=== PATIENT | male | born 1955 | race Caucasian/White ===

== ENCOUNTER 2019-05-16 17:08 | Observation (INO) ==
--- NOTE | 2019-05-16 17:47 | Emergency Department Note ---
Disposition Clinical Impression: Dizziness, Difficulty breathing Lung cancer Qualifiers: Laterality: unspecified laterality Lung location: unspecified part of lung Qualified Code(s): C34.90 - Malignant neoplasm of unspecified part of unspecifi ed bronchus or lung Disposition: Still a Patient Condition: Serious Referrals: Lubna Alonso CNP [Primary Care Provider] - Forms: ED Satisfaction Letter Time of Disposition: 19:24 Dizziness HPI - General Chief Complaint: ED Dizziness Stated Complaint: dizzy/back pain Time Seen by Provider: 05/16/19 17:13 Source: patient Mode of arrival: ambulatory Limitations: no limitations Nursing Notes Reviewed: Yes Vital Signs Reviewed: Yes - History of Present Illness HPI Narrative: 64-year-old male past medical history of lung cancer treated with radiation therapy last dose [address] 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 Presenting to the ED for one day of generalized malaise, worsening shortness of breath, back pain, lightheadedness and dizziness. Patient states that he has a considerable family history of cancer and that for of his siblings have all most recently being 2 months ago from lung cancer which spread to her spine. Patient is bedside said that they are concerned that this may be happening to the patient. Patient states he also has a lesion in his brain which they have been monitoring for concern of metastatic lung cancer to the brain tissue. Upon my evaluation patient sitting upright in hospital that he has an audible wheeze noted from across the room, he appears to be in mild respiratory distress , he is noted to be uncomfortable stating he has back pain which is 7 out of 10 on the pain scale. Patient has no lateralizing signs he is noncyanotic nondiaphoretic. Pt Subjective Complaint: dizziness, lightheadedness Onset (ago): day(s) Associated symptoms: Reports: chills, shortness of breath, weakness - Related Data Home Medications Medication Instructions Recorded Confirmed Albuterol Neb [Proventil Neb] 2.5 mg IH TID 06/06/18 04/17/19 Albuterol Sulfate [Ventolin Hfa] 2 puff IH Q4H PRN 06/06/18 04/17/19 Budesonide/Formoterol 160/4.5 2 puff IH BIDR 06/06/18 04/17/19 [Symbicort 160/4.5] Ergocalciferol (VITAMIN D2) 50,000 unit PO QWEEK 06/06/18 04/17/19 [Vitamin D2] Losartan/Hydrochlorothiazide 1 each PO DAILY 06/06/18 04/17/19 [Hyzaar 100-25 Tablet] Simvastatin [Zocor] 40 mg PO HS 06/06/18 04/17/19 cloNIDine HCl [Clonidine HCl] 0.2 mg PO TID 06/06/18 04/17/19 Allergies Allergy/AdvReac Type Severity Reaction Status Date / Time No Known Allergies Allergy Verified 04/17/19 11:43 Review of Systems: *See History of Present Illness for more detail Constitutional: Admits: Chills. Denies: fever Cardiovascular: Denies: chest pain Respiratory: Admits: dyspnea, cough, denies: hemoptysis Gastrointestinal: Denies: abdominal pain, nausea, vomiting, diarrhea, constipation, hematemesis, melena, hematochezia Genitourinary: Denies: hematuria Musculoskeletal: Admits to back pain: Denies: neck pain Neurological: Admits to headache, weakness, lightheadedness dizziness noticed paresthesias. Denies: difficulty with ambulation. Endocrine: Admits: fatigue All systems ED: reviewed and negative except as stated. Review of Systems: As Per HPI Past Medical History - Past Medical History Medical history: Reports: COPD, coronary artery disease, hyperlipidemia, hyp ertension Surgical history: Reports: cancer surgery, carotid endarterectomy Psychiatric history: Reports: no psych history - Social History Smoking Status: Current every day smoker Smokeless Tobacco Status: No Alcohol use: Reports: none Drug use: Reports: none Physical Exam Constitutional: No acute distress, [id number], engaged to conversation, speech is fluid, answers questions appropriately Neuro: GCS 15, no overt focal neurological deficits Head: Atraumatic, normocephalic Eyes: Pupils equal, round and reactive to light, no scleral icterus, no conjunctival injection Neck: Trachea midline without deviation. Anterior neck is supple without swelling. *Chest: Symmetric chest wall rise *Heart: Cardiac rhythm and rate are regular with S1 and S2 , no S3 or S4 appreciated, no murmurs, gallops, rubs, or clicks. *Lungs: Patient has diffuse rhonchi and inspiratory and expiratory wheezing to b ilateral auscultations. There is accessory muscle use or prolonged expiratory phase. Patient is in mild respiratory distress. Abdomen: Abdomen is flat, soft to palpation, normal bowel sounds. No abdominal bruit auscultated. Non-distended, non-rigid, no organomegaly, no ascites appreciated. No pulsatile mass, no tenderness or guarding to palpation in all four quadrants, no rebound Extremities: Normal capillary refill without evidence of pedal edema, joint swelling or erythema. Pulses/motor intact in all 4 extremities. Psychiatric exam: Patient displays a normal affect and mood for the environment. No overt signs of hallucination. Integumentary: warm, dry, intact, normal color. No rash, cyanosis, diaphoresis, erythema, or pallor Course Course Narrative: CT head, x-ray chest, lumbar spine, basic labs, coags, urinalysis, d-dimer. Steroids, DuoNeb nebs and fentanyl for management of patient's symptoms. Vital Signs Temperature 99.4 F 05/16/19 17:09 Pulse Rate 105 05/16/19 17:09 Respiratory Rate 20 05/16/19 17:09 Blood Pressure 148/90 05/16/19 17:09 O2 Sat by Pulse Oximetry 92 05/16/19 17:09 Temperature 99.4 F 05/16/19 17:09 Pulse Rate 93 05/16/19 19:05 Respiratory Rate 21 05/16/19 19:05 Blood Pressure 151/97 05/16/19 19:05 O2 Sat by Pulse Oximetry 97 05/16/19 19:05 Oxygen Delivery Oxygen Delivery Nasal Cannula Dizziness - MDM Narrative Medical decision making narrative: Patient workup thus far yields a positive d-dimer we will put in CTA of the chest as well as CT abdomen and pelvis due to concern for metastatic disease given the patient's symptoms. This patient will be signed out at the end of my shift to Dr. Tejas Downey and Dr. Marco Macario. Please see documentation by these physicians for further evaluation, management and final disposition. The patient's hemodynamics were stable time of transfer of care. - Lab Data Lab results reviewed: Yes I reviewed the patient's lab results. Result diagrams: 05/16/19 18:11 05/16/19 18:11 Lab Results 05/16/19 05/16/19 05/16/19 Range/Units 18:11 18:11 18:11 WBC 14.0 H (4.3-11.1) K/mcL RBC 5.02 (4.19-5.50) M/mcL Hgb 15.3 (12.9-16.9) g/dL Hct 46.8 (37.5-50.1) % MCV 93.2 (83.0-100.0) fL MCH 30.5 (28.0-33.3) pg MCHC 32.7 (31.6-35.5) g/dL RDW 15.4 H (11.5-14.5) % Plt Count 171 (140-400) K/mcL MPV 11.7 (9.4-12.4) fL Immature Gran % 0.3 (0-4) % Seg Neutrophils % 80.5 % Lymphocytes % 8.0 % Monocytes % 9.4 % Eosinophils % 1.4 % Basophils % 0.4 % Neutrophils # 11.3 H (1.6-8.9) K/mcL Lymphocytes # 1.1 (0.6-4.6) K/mcL Monocytes # 1.3 (0.0-1.3) K/mcL Eosinophils # 0.2 (0.0-0.6) K/mcL Basophils # 0.1 (0.0-0.2) K/mcL PT 12.9 H (9.4-12.1) Seconds INR 1.1 D-Dimer 869 H (0-500) ng/mLFEU Sodium 134 L (136-145) mEq/L Potassium 4.1 (3.5-5.1) mEq/L Chloride 101 (98-107) mEq/L Carbon Dioxide 24 (23-29) mEq/L BUN 14 (8-23) mg/dL Creatinine 0.79 (0.70-1.30) mg/dL Est GFR ( Amer) > 60 (> 60) Est GFR (Non-Af Amer) > 60 (> 60) BUN/Creatinine Ratio 18 (6-26) Glucose 100 (70-105) mg/dL Calculated Osmolality 279 L (280-300) Lactic Acid (0.5-2.2) mmol/L Calcium 9.6 (8.6-10.3) mg/dL Total Bilirubin 0.5 (0.3-1.0) mg/dL AST 10 L (13-39) Units/L ALT 9 (7-52) Units/L Alkaline Phosphatase 68 (34-104) Units/L Troponin I < 0.03 (< 0.04) ng/mL Serum Total Protein 7.4 (6.4-8.9) g/dL Albumin 4.1 (3.5-5.7) g/dL Globulin 3.3 (2.4-3.5) g/dL Albumin/Globulin Ratio 1.2 (1.1-2.2) 05/16/19 Range/Units 18:11 WBC (4.3-11.1) K/mcL RBC (4.19-5.50) M/mcL Hgb (12.9-16.9) g/dL Hct (37.5-50.1) % MCV (83.0-100.0) fL MCH (28.0-33.3) pg MCHC (31.6-35.5) g/dL RDW (11.5-14.5) % Plt Count (140-400) K/mcL MPV (9.4-12.4) fL Immature Gran % (0-4) % Seg Neutrophils % % Lymphocytes % % Monocytes % % Eosinophils % % Basophils % % Neutrophils # (1.6-8.9) K/mcL Lymphocytes # (0.6-4.6) K/mcL Monocytes # (0.0-1.3) K/mcL Eosinophils # (0.0-0.6) K/mcL Basophils # (0.0-0.2) K/mcL PT (9.4-12.1) Seconds INR D-Dimer (0-500) ng/mLFEU Sodium (136-145) mEq/L Potassium (3.5-5.1) mEq/L Chloride (98-107) mEq/L Carbon Dioxide (23-29) mEq/L BUN (8-23) mg/dL Creatinine (0.70-1.30) mg/dL Est GFR ( Amer) (> 60) Est GFR (Non-Af Amer) (> 60) BUN/Creatinine Ratio (6-26) Glucose (70-105) mg/dL Calculated Osmolality (280-300) Lactic Acid 1.1 (0.5-2.2) mmol/L Calcium (8.6-10.3) mg/dL Total Bilirubin (0.3-1.0) mg/dL AST (13-39) Units/L ALT (7-52) Units/L Alkaline Phosphatase (34-104) Units/L Troponin I (< 0.04) ng/mL Serum Total Protein (6.4-8.9) g/dL Albumin (3.5-5.7) g/dL Globulin (2.4-3.5) g/dL Albumin/Globulin Ratio (1.1-2.2) - Radiology Data Radiology results reviewed: Yes I reviewed the patient's radiology results. Head CT 05/16/19 17:45 IMPRESSION: No acute intracranial abnormality. D/ / Dejuan Adler MD / Dejuan Adler MD Interpreting Provider: Dejuan Adler MD - EKG Data EKG attestation: Yes I reviewed and interpreted this EKG. EKG results narrative: Patient EKG shows sinus rhythm with a heart of 91 bpm, MO interval of 165 ms, QRS duration 10 ms, QT/QT interval 346/4-6 ms respectively. There are no significant ST segment elevations, depressions, pathologic Q waves, abnormal T- wave inversions are noted in lead aVL however isolated to this lead, there are no signs of acute ischemic change. This EKG is generally consistent with prior EKG that was performed on 03/15/2017. Attestation Statement - Attestation Attestation: I, Willy Nelson, examined this patient and my medical decision-making was reviewed with the WET MILLING WHEEL OPERATOR/PA/Advanced Practice Nurse/Resident Physician. I agree with the documented findings, disposition and treatment plan as described except to the extent set forth below. 64-year-old male presents emergency Department with concerns of multiple complaints. Patient states that he has midline back pain that has been present over the past 24-48 hours. Patient also has a history of dizziness with standing, shortness of breath and palpitations. He has a heart rate of 105 in the emergency department. He is unsure if he has had a fever however he has not taken it at home. It is elevated in the emergency department but not quite a fever. Patient states his cough is productive of white sputum. His lungs have wheezing the bilateral posterior lung dumont. He has been using Ventolin and Symbicort at home for his COPD. He states that this feels different than his previous COPD exacerbation. Abdomen is nontender to palpation. Laboratory evaluation and imaging is pending at this time. Patient care will be signed out to Dr. Downey pending reevaluation, imaging, laboratory evaluation, disposition.
[2019-05-16] MEDS ORDERED: 0.9 % Sodium Chloride 1,000 ML IVC ONE (18:25)
[2019-05-16 18:30] LABS: Basophils # 0.1 K/mcL (0.0-0.2); Basophils % 0.4 %; Eosinophils # 0.2 K/mcL (0.0-0.6); Eosinophils % 1.4 %; Hematocrit 46.8 % (37.5-50.1); Hemoglobin 15.3 g/dL (12.9-16.9); Immature Granulocytes % 0.3 % (0-4); Lymphocytes # 1.1 K/mcL (0.6-4.6); Mean Corpuscular HGB Conc 32.7 g/dL (31.6-35.5); Mean Corpuscular Hemoglobin 30.5 pg (28.0-33.3); Mean Corpuscular Volume 93.2 fL (83.0-100.0); Mean Platelet Volume 11.7 fL (9.4-12.4); Monocytes # 1.3 K/mcL (0.0-1.3); Monocytes % 9.4 %; Neutrophils # 11.3 K/mcL (1.6-8.9); Platelet Count 171 K/mcL (140-400); Red Blood Count 5.02 M/mcL (4.19-5.50); Red Cell Distribution Width 15.4 % (11.5-14.5); Segmented Neutrophils % 80.5 %
[2019-05-16] MEDS ORDERED: Ipratropium/Albuterol Neb 3 ML IH ONE ×2 (18:33→19:14)
[2019-05-16 18:37] LABS: INR 1.1; Prothrombin Time 12.9 Seconds (9.4-12.1)
[2019-05-16 18:51] LABS: Alanine Aminotransferase 9 Units/L (7-52); Albumin 4.1 g/dL (3.5-5.7); Albumin/Globulin Ratio 1.2 (1.1-2.2); Alkaline Phosphatase 68 Units/L (34-104); Aspartate Amino Transferase 10 Units/L (13-39); BUN/Creatinine Ratio 18 (6-26); Bilirubin,Total 0.5 mg/dL (0.3-1.0); Blood Urea Nitrogen 14 mg/dL (8-23); Calcium 9.6 mg/dL (8.6-10.3); Carbon Dioxide 24 mEq/L (23-29); Chloride 101 mEq/L (98-107); Globulin 3.3 g/dL (2.4-3.5); Glucose 100 mg/dL (70-105); Osmolality,Calculated 279 (280-300); Potassium 4.1 mEq/L (3.5-5.1); Sodium 134 mEq/L (136-145); Total Protein 7.4 g/dL (6.4-8.9); Troponin I < 0.03 ng/mL (< 0.04); eGFR For African Americans > 60 (> 60); eGFR For Non-African Americans > 60 (> 60)
[2019-05-16] MEDS ORDERED: Isovue-370 500 ML BOTTLE IVP ONE ×2 (18:56→19:08)
[2019-05-16] MEDS ORDERED: *HR* FentaNYL (PF) 100 MCG/2 ML VIAL IVP ONE (19:15)
[2019-05-16] MEDS ORDERED: predniSONE 20 MG TABLET PO ONE (19:18)
--- NOTE | 2019-05-16 19:21 | Emergency Department Note ---
Disposition Clinical Impression: Dizziness, Difficulty breathing Lung cancer Qualifiers: Laterality: unspecified laterality Lung location: unspecified part of lung Qualified Code(s): C34.90 - Malignant neoplasm of unspecified part of unspecifi ed bronchus or lung Sepsis Qualifiers: Sepsis type: sepsis due to unspecified organism Qualified Code(s): A41.9 - Sepsis, unspecified organism Pneumonia Qualifiers: Pneumonia type: due to unspecified organism Laterality: unspecified laterality Lung location: unspecified part of lung Qualified Code(s): J18.9 - Pneumonia, unspecified organism Disposition: Admitted As Inpatient Condition: Fair Referrals: Lubna Alonso CNP [Primary Care Provider] - Forms: ED Satisfaction Letter Time of Disposition: 20:19 General Adult HPI - General Chief complaint: ED Dizziness Stated complaint: dizzy/back pain Time Seen by Provider: 05/16/19 17:13 Source: patient Mode of arrival: ambulatory Limitations: no limitations - History of Present Illness Pain Scale: 5 - Related Data Home Medications Medication Instructions Recorded Confirmed Albuterol Neb [Proventil Neb] 2.5 mg IH TID 06/06/18 04/17/19 Albuterol Sulfate [Ventolin Hfa] 2 puff IH Q4H PRN 06/06/18 04/17/19 Budesonide/Formoterol 160/4.5 2 puff IH BIDR 06/06/18 04/17/19 [Symbicort 160/4.5] Ergocalciferol (VITAMIN D2) 50,000 unit PO QWEEK 06/06/18 04/17/19 [Vitamin D2] Losartan/Hydrochlorothiazide 1 each PO DAILY 06/06/18 04/17/19 [Hyzaar 100-25 Tablet] Simvastatin [Zocor] 40 mg PO HS 06/06/18 04/17/19 cloNIDine HCl [Clonidine HCl] 0.2 mg PO TID 06/06/18 04/17/19 Allergies Allergy/AdvReac Type Severity Reaction Status Date / Time No Known Allergies Allergy Verified 04/17/19 11:43 Past Medical History - Past Medical History Medical history: Reports: COPD, coronary artery disease, hyperlipidemia, hypertension Surgical history: Reports: cancer surgery, carotid endarterectomy Psychiatric history: Reports: no psych history - Social History Smoking Status: Current every day smoker Smokeless Tobacco Status: No Alcohol use: Reports: none Drug use: Reports: none Physical Exam - General Limitations: no limitations Course Vital Signs Temperature 99.4 F 05/16/19 17:09 Pulse Rate 105 05/16/19 17:09 Respiratory Rate 20 05/16/19 17:09 Blood Pressure 148/90 05/16/19 17:09 O2 Sat by Pulse Oximetry 92 05/16/19 17:09 Temperature 99.4 F 05/16/19 17:09 Pulse Rate 93 05/16/19 19:05 Respiratory Rate 17 05/16/19 19:53 Blood Pressure 151/97 05/16/19 19:05 O2 Sat by Pulse Oximetry 96 05/16/19 19:53 Oxygen Delivery Oxygen Delivery Nasal Cannula Medical Decision Making - MDM Narrative Medical decision making narrative: Patient was signed out by the day team of Dr. Nelson and Dr. Best due to shift change. Please see their documentation for history of presenting illness, physical exam and initial medical decision making. At the time of signout the CTA of the chest, abdomen and pelvis were pending. We will review the laboratory testing that was a ready obtained as well as previously obtain imaging. Disposition will be determined once the CTAs have returned. CT of the chest shows evidence of pneumonia and reactive lymphadenopathy. No evidence of pulmonary emboli even though there was an elevated d-dimer. The d-dimer elevation is likely secondary to the patient's history of cancer. The CT of the abdomen and pelvis showed a 3.5 cm aneurysm in the abdomen but no other acute findings. Patient be started on broad-spectrum antibiotics and will be admitted to the hospital for further evaluation and management of his pneumonia Patient did meet sepsis criteria. Has been started on broad-spectrum antibiotics. At this time I do not feel that the patient has signs of septic shock and does not need a full 30/kg bolus. I called spoke the admitting hospitalist Dr. Anderson and he is except the patient to their service. Patient be admitted to the hospital at this time for further evaluation and management - Medical Records Medical records reviewed: Yes I reviewed the patient's medical records. - Lab Data Lab results reviewed: Yes I reviewed the patient's lab results. Result diagrams: 05/16/19 18:11 05/16/19 18:11 Lab Results 05/16/19 05/16/19 05/16/19 Range/Units 18:11 18:11 18:11 WBC 14.0 H (4.3-11.1) K/mcL RBC 5.02 (4.19-5.50) M/mcL Hgb 15.3 (12.9-16.9) g/dL Hct 46.8 (37.5-50.1) % MCV 93.2 (83.0-100.0) fL MCH 30.5 (28.0-33.3) pg MCHC 32.7 (31.6-35.5) g/dL RDW 15.4 H (11.5-14.5) % Plt Count 171 (140-400) K/mcL MPV 11.7 (9.4-12.4) fL Immature Gran % 0.3 (0-4) % Seg Neutrophils % 80.5 % Lymphocytes % 8.0 % Monocytes % 9.4 % Eosinophils % 1.4 % Basophils % 0.4 % Neutrophils # 11.3 H (1.6-8.9) K/mcL Lymphocytes # 1.1 (0.6-4.6) K/mcL Monocytes # 1.3 (0.0-1.3) K/mcL Eosinophils # 0.2 (0.0-0.6) K/mcL Basophils # 0.1 (0.0-0.2) K/mcL PT 12.9 H (9.4-12.1) Seconds INR 1.1 D-Dimer 869 H (0-500) ng/mLFEU Sodium 134 L (136-145) mEq/L Potassium 4.1 (3.5-5.1) mEq/L Chloride 101 (98-107) mEq/L Carbon Dioxide 24 (23-29) mEq/L BUN 14 (8-23) mg/dL Creatinine 0.79 (0.70-1.30) mg/dL Est GFR ( Amer) > 60 (> 60) Est GFR (Non-Af Amer) > 60 (> 60) BUN/Creatinine Ratio 18 (6-26) Glucose 100 (70-105) mg/dL Calculated Osmolality 279 L (280-300) Lactic Acid (0.5-2.2) mmol/L Calcium 9.6 (8.6-10.3) mg/dL Total Bilirubin 0.5 (0.3-1.0) mg/dL AST 10 L (13-39) Units/L ALT 9 (7-52) Units/L Alkaline Phosphatase 68 (34-104) Units/L Troponin I < 0.03 (< 0.04) ng/mL Serum Total Protein 7.4 (6.4-8.9) g/dL Albumin 4.1 (3.5-5.7) g/dL Globulin 3.3 (2.4-3.5) g/dL Albumin/Globulin Ratio 1.2 (1.1-2.2) Urine Color (Yellow) Urine Clarity (Clear) Urine pH (5.0-8.0) pH Units Ur Specific Conroy (1.010-1.025) Urine Protein (Neg-Trace) mg/dL Urine Glucose (UA) (Normal) mg/dL Urine Ketones (Negative) mg/dL Urine Blood (Negative) Urine Nitrite (Negative) Urine Bilirubin (Negative) Urine Urobilinogen (Normal) mg/dL Ur Leukocyte Esterase (Negative) Urine Microscopic RBC (0-3) per hpf Urine Microscopic WBC (0-3) per hpf Ur Squamous Epith Cells (None-Few) per lpf Urine Bacteria (None-Few) per hpf Hyaline Casts (None-Few) per lpf Ur Culture Indicated? (NO) 05/16/19 05/16/19 Range/Units 18:11 19:38 WBC (4.3-11.1) K/mcL RBC (4.19-5.50) M/mcL Hgb (12.9-16.9) g/dL Hct (37.5-50.1) % MCV (83.0-100.0) fL MCH (28.0-33.3) pg MCHC (31.6-35.5) g/dL RDW (11.5-14.5) % Plt Count (140-400) K/mcL MPV (9.4-12.4) fL Immature Gran % (0-4) % Seg Neutrophils % % Lymphocytes % % Monocytes % % Eosinophils % % Basophils % % Neutrophils # (1.6-8.9) K/mcL Lymphocytes # (0.6-4.6) K/mcL Monocytes # (0.0-1.3) K/mcL Eosinophils # (0.0-0.6) K/mcL Basophils # (0.0-0.2) K/mcL PT (9.4-12.1) Seconds INR D-Dimer (0-500) ng/mLFEU Sodium (136-145) mEq/L Potassium (3.5-5.1) mEq/L Chloride (98-107) mEq/L Carbon Dioxide (23-29) mEq/L BUN (8-23) mg/dL Creatinine (0.70-1.30) mg/dL Est GFR ( Amer) (> 60) Est GFR (Non-Af Amer) (> 60) BUN/Creatinine Ratio (6-26) Glucose (70-105) mg/dL Calculated Osmolality (280-300) Lactic Acid 1.1 (0.5-2.2) mmol/L Calcium (8.6-10.3) mg/dL Total Bilirubin (0.3-1.0) mg/dL AST (13-39) Units/L ALT (7-52) Units/L Alkaline Phosphatase (34-104) Units/L Troponin I (< 0.04) ng/mL Serum Total Protein (6.4-8.9) g/dL Albumin (3.5-5.7) g/dL Globulin (2.4-3.5) g/dL Albumin/Globulin Ratio (1.1-2.2) Urine Color Yellow (Yellow) Urine Clarity Clear (Clear) Urine pH 6.0 (5.0-8.0) pH Units Ur Specific Conroy 1.019 (1.010-1.025) Urine Protein Trace (Neg-Trace) mg/dL Urine Glucose (UA) Normal (Normal) mg/dL Urine Ketones 40 H (Negative) mg/dL Urine Blood Small H (Negative) Urine Nitrite Negative (Negative) Urine Bilirubin Negative (Negative) Urine Urobilinogen Normal (Normal) mg/dL Ur Leukocyte Esterase Negative (Negative) Urine Microscopic RBC 5-15 H (0-3) per hpf Urine Microscopic WBC 0-3 (0-3) per hpf Ur Squamous Epith Cells Few (None-Few) per lpf Urine Bacteria None Seen (None-Few) per hpf Hyaline Casts None Seen (None-Few) per lpf Ur Culture Indicated? NO (NO) - Radiology Data Radiology results reviewed: Yes I reviewed the patient's radiology results. Chest X-Ray 05/16/19 17:42 IMPRESSION: Emphysematous changes with chronic opacity left upper lung field and nonvisualization of a right upper lobe mass seen on chest CT from 1 month earlier. No new pulmonary process is suggested. CT scan would prove helpful for further assessment if clinically warranted. No acute osseous injury of the lumbar spine. D/ / 05/16/2019 19:22:30 Alden Mesa MD / jacqueline Interpreting Provider: Alden Mesa MD Lumbar Spine X-Ray 05/16/19 17:44 IMPRESSION: Emphysematous changes with chronic opacity left upper lung field and nonvisualization of a right upper lobe mass seen on chest CT from 1 month earlier. No new pulmonary process is suggested. CT scan would prove helpful for further assessment if clinically warranted. No acute osseous injury of the lumbar spine. D/ / 05/16/2019 19:22:30 Alden Mesa MD / jacqueline Interpreting Provider: Alden Mesa MD Head CT 05/16/19 17:45 IMPRESSION: No acute intracranial abnormality. D/ / Dejuan Adler MD / Dejuan Adler MD Interpreting Provider: Dejuan Adler MD Chest CTA 05/16/19 18:57 IMPRESSION: No evidence of pulmonary embolism. Interval development of innumerable ground-glass and tree-in-bud nodules scattered throughout both lungs with peribronchial cuffing suggesting an acute atypical pneumonia. Enlarged mediastinal and bilateral hilar lymphadenopathy increased in size compared to prior chest CT. Reactive lymphadenopathy is favored over metastatic disease, however, recommend follow-up to resolution. Irregular spiculated right upper lobe and left upper lobe pulmonary nodules unchanged since prior examination suggesting stable metastatic disease/malignancy. No evidence of definite new pulmonary metastatic disease. D/ / 05/16/2019 20:08:19 Dejuan Adler MD / jacqueline Interpreting Provider: Dejuan Adler MD Abdomen/Pelvis CT 05/16/19 19:08 IMPRESSION: No acute abdominopelvic process. No evidence of metastatic disease. Multilevel degenerative change. 3.5 cm abdominal aortic aneurysm. RECOMMENDATIONS: Recommend follow-up every 2 years. Reference: J Am Sherman Radiol 2013;10:789-794. D/ / 05/16/2019 20:03:06 Nirav Correa / jacqueline Interpreting Provider: Nirav Correa
--- NOTE | 2019-05-16 19:22 | Emergency Department Note ---
Disposition Clinical Impression: Dizziness Disposition: Still a Patient Referrals: Lubna Alonso CNP [Primary Care Provider] - Forms: ED Satisfaction Letter Time of Disposition: 19:21 General Adult HPI - General Chief complaint: ED Dizziness Stated complaint: dizzy/back pain Time Seen by Provider: 05/16/19 17:13 Source: patient Mode of arrival: ambulatory Limitations: no limitations Nursing Notes Reviewed: Yes Vital Signs Reviewed: Yes - History of Present Illness HPI Narrative: Attestation note: Patient was seen with the emergency medicine resident/nurse practitioner/physician dental laboratory assistant/transitional resident/medical student: Dr. TIARRA SIMPSON. This includes well any procedures performed for this significant portion thereof which are to include EKG and bedside ultrasound I have personally performed a face to face evaluation on this patient. I have reviewed and agree with history and physical examination patient management and disposition. Briefly the salient points of the case are as follows: Patient signed out by the departing emergency medicine attending and resident Dr. Nelson and Dr. Trejo. Please see copy note for details of the history and physical examination evaluation management to the point of sign out at 1921. We are follow-up the results of the CT scan screening labs reevaluated patient. Patient is stable. Disposition pending Pain Scale: 5 - Related Data Home Medications Medication Instructions Recorded Confirmed Albuterol Neb [Proventil Neb] 2.5 mg IH TID 06/06/18 04/17/19 Albuterol Sulfate [Ventolin Hfa] 2 puff IH Q4H PRN 06/06/18 04/17/19 Budesonide/Formoterol 160/4.5 2 puff IH BIDR 06/06/18 04/17/19 [Symbicort 160/4.5] Ergocalciferol (VITAMIN D2) 50,000 unit PO QWEEK 06/06/18 04/17/19 [Vitamin D2] Losartan/Hydrochlorothiazide 1 each PO DAILY 06/06/18 04/17/19 [Hyzaar 100-25 Tablet] Simvastatin [Zocor] 40 mg PO HS 06/06/18 04/17/19 cloNIDine HCl [Clonidine HCl] 0.2 mg PO TID 06/06/18 04/17/19 Allergies Allergy/AdvReac Type Severity Reaction Status Date / Time No Known Allergies Allergy Verified 04/17/19 11:43 Past Medical History - Past Medical History Medical history: Reports: COPD, coronary artery disease, hyperlipidemia, hypertension Surgical history: Reports: cancer surgery, carotid endarterectomy Psychiatric history: Reports: no psych history - Social History Smoking Status: Current every day smoker Smokeless Tobacco Status: No Alcohol use: Reports: none Drug use: Reports: none Physical Exam - General Limitations: no limitations Course Vital Signs Temperature 99.4 F 05/16/19 17:09 Pulse Rate 105 05/16/19 17:09 Respiratory Rate 20 05/16/19 17:09 Blood Pressure 148/90 05/16/19 17:09 O2 Sat by Pulse Oximetry 92 05/16/19 17:09 Temperature 99.4 F 05/16/19 17:09 Pulse Rate 93 05/16/19 19:05 Respiratory Rate 21 05/16/19 19:05 Blood Pressure 151/97 05/16/19 19:05 O2 Sat by Pulse Oximetry 97 05/16/19 19:05 Oxygen Delivery Oxygen Delivery Nasal Cannula Medical Decision Making - Lab Data Result diagrams: 05/16/19 18:11 05/16/19 18:11 Lab Results 05/16/19 05/16/19 05/16/19 Range/Units 18:11 18:11 18:11 WBC 14.0 H (4.3-11.1) K/mcL RBC 5.02 (4.19-5.50) M/mcL Hgb 15.3 (12.9-16.9) g/dL Hct 46.8 (37.5-50.1) % MCV 93.2 (83.0-100.0) fL MCH 30.5 (28.0-33.3) pg MCHC 32.7 (31.6-35.5) g/dL RDW 15.4 H (11.5-14.5) % Plt Count 171 (140-400) K/mcL MPV 11.7 (9.4-12.4) fL Immature Gran % 0.3 (0-4) % Seg Neutrophils % 80.5 % Lymphocytes % 8.0 % Monocytes % 9.4 % Eosinophils % 1.4 % Basophils % 0.4 % Neutrophils # 11.3 H (1.6-8.9) K/mcL Lymphocytes # 1.1 (0.6-4.6) K/mcL Monocytes # 1.3 (0.0-1.3) K/mcL Eosinophils # 0.2 (0.0-0.6) K/mcL Basophils # 0.1 (0.0-0.2) K/mcL PT 12.9 H (9.4-12.1) Seconds INR 1.1 D-Dimer 869 H (0-500) ng/mLFEU Sodium 134 L (136-145) mEq/L Potassium 4.1 (3.5-5.1) mEq/L Chloride 101 (98-107) mEq/L Carbon Dioxide 24 (23-29) mEq/L BUN 14 (8-23) mg/dL Creatinine 0.79 (0.70-1.30) mg/dL Est GFR ( Amer) > 60 (> 60) Est GFR (Non-Af Amer) > 60 (> 60) BUN/Creatinine Ratio 18 (6-26) Glucose 100 (70-105) mg/dL Calculated Osmolality 279 L (280-300) Lactic Acid (0.5-2.2) mmol/L Calcium 9.6 (8.6-10.3) mg/dL Total Bilirubin 0.5 (0.3-1.0) mg/dL AST 10 L (13-39) Units/L ALT 9 (7-52) Units/L Alkaline Phosphatase 68 (34-104) Units/L Troponin I < 0.03 (< 0.04) ng/mL Serum Total Protein 7.4 (6.4-8.9) g/dL Albumin 4.1 (3.5-5.7) g/dL Globulin 3.3 (2.4-3.5) g/dL Albumin/Globulin Ratio 1.2 (1.1-2.2) 05/16/19 Range/Units 18:11 WBC (4.3-11.1) K/mcL RBC (4.19-5.50) M/mcL Hgb (12.9-16.9) g/dL Hct (37.5-50.1) % MCV (83.0-100.0) fL MCH (28.0-33.3) pg MCHC (31.6-35.5) g/dL RDW (11.5-14.5) % Plt Count (140-400) K/mcL MPV (9.4-12.4) fL Immature Gran % (0-4) % Seg Neutrophils % % Lymphocytes % % Monocytes % % Eosinophils % % Basophils % % Neutrophils # (1.6-8.9) K/mcL Lymphocytes # (0.6-4.6) K/mcL Monocytes # (0.0-1.3) K/mcL Eosinophils # (0.0-0.6) K/mcL Basophils # (0.0-0.2) K/mcL PT (9.4-12.1) Seconds INR D-Dimer (0-500) ng/mLFEU Sodium (136-145) mEq/L Potassium (3.5-5.1) mEq/L Chloride (98-107) mEq/L Carbon Dioxide (23-29) mEq/L BUN (8-23) mg/dL Creatinine (0.70-1.30) mg/dL Est GFR ( Amer) (> 60) Est GFR (Non-Af Amer) (> 60) BUN/Creatinine Ratio (6-26) Glucose (70-105) mg/dL Calculated Osmolality (280-300) Lactic Acid 1.1 (0.5-2.2) mmol/L Calcium (8.6-10.3) mg/dL Total Bilirubin (0.3-1.0) mg/dL AST (13-39) Units/L ALT (7-52) Units/L Alkaline Phosphatase (34-104) Units/L Troponin I (< 0.04) ng/mL Serum Total Protein (6.4-8.9) g/dL Albumin (3.5-5.7) g/dL Globulin (2.4-3.5) g/dL Albumin/Globulin Ratio (1.1-2.2)
[2019-05-16 19:44] LABS: Bilirubin,Urine Negative (Negative); Blood,Urine Small (Negative); Clarity,Urine Clear (Clear); Color,Urine Yellow (Yellow); Glucose,Urine (UA) Normal (Normal); Ketones,Urine 40 mg/dL (Negative); Leukocyte Esterase,Urine Negative (Negative); Nitrite,Urine Negative (Negative); Protein,Urine Trace mg/dL (Neg-Trace); Specific Gravity,Urine 1.019 (1.010-1.025); Urobilinogen,Urine Normal (Normal)
[2019-05-16 19:46] LABS: Bacteria,Urine None Seen per hpf (None-Few); Hyaline Casts,Urine None Seen per lpf (None-Few); Squamous Epithelial Cell,Urine Few per lpf (None-Few); WBC,Urine 0-3 per hpf (0-3)
[2019-05-16] MEDS ORDERED: levoFLOXacin 750 MG/150 ML 750 MG/150 ML BAG IVPB ONE (20:08)
[2019-05-16] MEDS ORDERED: Piperacillin/Tazobactam 3.375 GM in 0.9 % Sodium Chloride Mini Bag 100 ML IVPB ONE (20:08)
--- NOTE | 2019-05-16 21:04 | Internal Med History&Physical ---
<Moreno King - Last Filed: 05/16/19 22:34> Date of Encounter: 05/16/19 Time of Encounter: 21:20 Internal Medicine - H&P: HPI Chief complaint: SOB Admitted From: Emergency Dept Plans for Post Hospital Care: Home History of present illness: Mr. Fontanez is a 64 year old male with history of COPD, CAD, hypertension, hyperlipidemia, lung cancer who presented to the hospital with 2 day history of weakness, shortness of breath and malaise. He says that yesterday he had a sudden onset feeling of chills, weakness and shortness breath which started approximately 3 PM. He very suddenly felt cold and clammy, and developed weakness and shortness of breath. He said that this got progressively worse throughout the day however he did search feel somewhat better but attempt he went to bed. He said that when he woke up this morning however, he did start to feel significantly worse and started developing cough with some white phlegm production. Over the course of the day he started to feel worse and he felt that he was maybe feverish as well. His shortness of breath also did get worse as well. He finally decided that he needed to come into the hospital because he felt that he may be developing a severe illness. His only other acute complaint was lower back pain at around his belt line which was new, but not associated with any LE weakness or loss of feeling. Significantly, the patient does have history of lung cancer and was most recently treated with radiation approximately 6 months ago. He does use 2 L of home oxygen at night exclusively. In the emergency department, the patient had labs which were remarkable only for a WBC of 14. The patient was afebrile with a temperature of 99.4, he was tachycardic with heart rate of 105, RR 20. The patient did have a CTA of the chest which was negative for pulmonary embolism but did demonstrate innumerable groundglass and tree and bud nodules scattered throughout both lungs and peribronchial cuffing suggesting acute atypical pneumonia. It also redemonstrate irregular spiculated right upper lobe and left lower lobe pulmonary nodules suggestive of stable metastatic disease. CT of the abdomen and pelvis did demonstrate 3.5 severe abdominal aortic aneurysm but was otherwise negative. The patient received Vancomycin and levaquin and was admitted to the hospitalist service for further workup and treatment of atypical pneumonia. Past Med Surg Social Fam HX - Past Medical History Medical history: COPD, coronary artery disease, hyperlipidemia, hypertension Additional medical history: emphysema Psychiatric history: no psych history - Past Surgical History Surgical History: cancer surgery, carotid endarterectomy Additional surgical history: right ankle. heart cath - Social History Smoking Status: Current every day smoker Smokeless Tobacco Status: No Alcohol use: none Drug use: none Internal Medicine - H&P: Meds Albuterol Neb [Proventil Neb] 2.5 mg IH TID 06/06/18 [History] Albuterol Sulfate [Ventolin Hfa] 2 puff IH Q4H PRN 06/06/18 [History] Budesonide/Formoterol 160/4.5 [Symbicort 160/4.5] 2 puff IH BIDR 06/06/18 [History] Ergocalciferol (VITAMIN D2) [Vitamin D2] 50,000 unit PO QWEEK 06/06/18 [History] Losartan/Hydrochlorothiazide [Hyzaar 100-25 Tablet] 1 each PO DAILY 06/06/18 [History] Simvastatin [Zocor] 40 mg PO HS 06/06/18 [History] cloNIDine HCl [Clonidine HCl] 0.2 mg PO TID 06/06/18 [History] Allergy/AdvReac Type Severity Reaction Status Date / Time No Known Allergies Allergy Verified 04/17/19 11:43 All Systems PM: A 10-system review of systems was performed and is negative for pertinent findings except as documented above in the HPI. Review of systems: Constitutional: Denies fevers, weight loss. Admits to feeling of chills and generalized fatigue Head/Neck: Denies TUCKER, neck stiffness EENT: Denies vision changes/blurriness, rhinorrhea, congestion, sore throat CVS: Denies chest pain, palpitations, LEMON, orthopnea, edema, PND Pulm: Admits to shortness of breath, cough, sputum production. GI: Denies abdominal pain, nausea, vomiting, diarrhea, constipation, melena, hematemasis : Denies dysuria, increased frequency, urgency, hematuria Heme: Denies ease of bleeding or bruising MSK: Denies joint pain, limited ROM Skin: Denies rashes, ulcers, color changes Neuro: Denies TUCKER, focal deficits, ataxia. Admits to "strange feeling" in his legs when he stands up initially that goes away instantly. - Constitutional Vitals: Temp Pulse Resp BP Pulse Ox 99.4 F 92 20 147/84 93 05/16/19 17:09 05/16/19 20:52 05/16/19 20:52 05/16/19 20:52 05/16/19 20:52 Exam: Gen: Vitals noted. Appears very minimally distressed Eyes: anicteric sclerae, moist conjunctivae; no lid-lag; Pupils equal and reactive to light HENT: Atraumatic; oropharynx clear with moist mucous membranes and no mucosal ulcerations; normal hard and soft palate Neck: Trachea midline; supple, no thyromegaly or lymphadenopathy Cardiac: RRR, no murmur, +S1/S2 Pulmonary: Diffuse expiratory wheezes noted on exam, bilaterally diminished otherwise Abdomen: soft, nontender, no guarding. No masses or hepatosplenomegaly MSK: ROM intact, no joint swelling noted Extremities: no BLE edema, nontender calf, no cyanosis or clubbing Skin: Normal temperature, turgor and texture; no rash, ulcers or subcutaneous nodules Neuro: moves all extremities, no focal deficits. Muscle strength 5/5 in all four extremities, no saddle anesthesia present. Psych: Appropriate mood and behavior. A&Ox3 Internal Med - H&P Results - Labs CBC & Chem 7: 05/16/19 18:11 05/16/19 18:11 Labs: Short CBC 05/16/19 Range/Units 18:11 WBC 14.0 H (4.3-11.1) K/mcL Hgb 15.3 (12.9-16.9) g/dL Hct 46.8 (37.5-50.1) % Plt Count 171 (140-400) K/mcL Neutrophils # 11.3 H (1.6-8.9) K/mcL BMP 05/16/19 18:11 Sodium 134 L Potassium 4.1 Chloride 101 Carbon Dioxide 24 BUN 14 Creatinine 0.79 Glucose 100 Calcium 9.6 Cardiac Enzymes 05/16/19 Range/Units 18:11 Troponin I < 0.03 (< 0.04) ng/mL Liver Function 05/16/19 Range/Units 18:11 Total Bilirubin 0.5 (0.3-1.0) mg/dL AST 10 L (13-39) Units/L ALT 9 (7-52) Units/L Alkaline Phosphatase 68 (34-104) Units/L Albumin 4.1 (3.5-5.7) g/dL Urine 05/16/19 Range/Units 19:38 Urine Color Yellow (Yellow) Urine Clarity Clear (Clear) Urine pH 6.0 (5.0-8.0) pH Units Ur Specific [place] 1.019 (1.010-1.025) Urine Protein Trace (Neg-Trace) mg/dL Urine Glucose (UA) Normal (Normal) mg/dL - Impressions ITS Impressions Chest X-Ray 05/16/19 17:42 IMPRESSION: Emphysematous changes with chronic opacity left upper lung field and nonvisualization of a right upper lobe mass seen on chest CT from 1 month earlier. No new pulmonary process is suggested. CT scan would prove helpful for further assessment if clinically warranted. No acute osseous injury of the lumbar spine. D/ / 05/16/2019 19:22:30 Alden Mesa MD / jacqueline Interpreting Provider: Alden Mesa MD Lumbar Spine X-Ray 05/16/19 17:44 IMPRESSION: Emphysematous changes with chronic opacity left upper lung field and nonvisualization of a right upper lobe mass seen on chest CT from 1 month earlier. No new pulmonary process is suggested. CT scan would prove helpful for further assessment if clinically warranted. No acute osseous injury of the lumbar spine. D/ / 05/16/2019 19:22:30 Alden Mesa MD / jacqueline Interpreting Provider: Alden Mesa MD Head CT 05/16/19 17:45 IMPRESSION: No acute intracranial abnormality. D/ / Dejuan Adlre MD / Dejuan Adler MD Interpreting Provider: Dejuan Adler MD Chest CTA 07/20/19 18:57 IMPRESSION: No evidence of pulmonary embolism. Interval development of innumerable ground-glass and tree-in-bud nodules scattered throughout both lungs with peribronchial cuffing suggesting an acute atypical pneumonia. Enlarged mediastinal and bilateral hilar lymphadenopathy increased in size compared to prior chest CT. Reactive lymphadenopathy is favored over metastatic disease, however, recommend follow-up to resolution. Irregular spiculated right upper lobe and left upper lobe pulmonary nodules unchanged since prior examination suggesting stable metastatic disease/malignancy. No evidence of definite new pulmonary metastatic disease. D/ / 05/16/2019 20:08:19 Dejuan Adler MD / jacqueline Interpreting Provider: Dejuan Adler MD Abdomen/Pelvis CT 05/16/19 19:08 IMPRESSION: No acute abdominopelvic process. No evidence of metastatic disease. Multilevel degenerative change. 3.5 cm abdominal aortic aneurysm. RECOMMENDATIONS: Recommend follow-up every 2 years. Reference: J Am Sherman Radiol 2013;10:789-794. D/ / 05/16/2019 20:03:06 Nirav Correa / jacqueline Interpreting Provider: Nirav Correa - Assessment and Plan (1) Sepsis Current Visit: Yes Status: Acute Assessment and plan: Sepsis secondary to atypical pneumonia SIRS Criteria: WBC 14, HR 105, RR 24. Source: Pneumonia Presented with acute chills, SOB, Cough with sputum production Chest CTA shows Innumerable groundglass and tree-in-bud nodules scattered throughout both lungs and acute atypical pneumonia Got 1L bolus in ED, concern that he may not require full fluid bolus or be able to tolerate Also got vancomycin and levaquin in ED Blood cultures, strep pneumo, legionella antigens pending Plan Bolus 500mL 0.9NS, Start 80mL/hr IVF following Start Rocephin and Azithromycin for CAP De-escalate pending cultures Continuous pulse ox Repeat BMP and CBC in AM Qualifiers: Sepsis type: sepsis due to unspecified organism Qualified Code(s): A41.9 - Sepsis, unspecified organism (2) Acute and chronic respiratory failure with hypoxia Current Visit: Yes Status: Acute Assessment and plan: Acute on chronic respiratory failure with hypoxia, multifactorial Secondary to kidney acquired pneumonia, COPD exacerbation, lung cancer Presents with increased need of oxygen, usually uses 2 L home O2 at night Patient is now requiring 2 L of oxygen to saturate 92% We will continue to treat treated for pneumonia with antibiotic As needed duonebs IV steroids (3) Pneumonia Current Visit: Yes Status: Acute Assessment and plan: Community acquired pneumonia in setting of known lung cancer Appears to be atypical per CT findings Blood cultures, sputum cultures, strep and legionella antigens pending Rocephin and Azithromycin coverage Qualifiers: Pneumonia type: due to unspecified organism Laterality: unspecified laterality Lung location: unspecified part of lung Qualified Code(s): J18.9 - Pneumonia, unspecified organism (4) COPD (chronic obstructive pulmonary disease) Current Visit: Yes Status: Acute Assessment and plan: COPD With acute exacerbation 2/2 CAP Patient has cough with sputum production, increased O2 demand. Diffuse wheezing Will treat with Rocephin and azithromycin as above Start Solu-medrol 40mg IV q8h Continuos pulse ox Qualifiers: COPD type: COPD with acute exacerbation Qualified Code(s): J44.1 - Chronic obstructive pulmonary disease with (acute) exacerbation (5) Back pain Current Visit: Yes Status: Acute Assessment and plan: Acute central and low back pain Seems to be improved, however etiology is unclear CTA Abdomen/pelvis did not demonstrate any spinal or abdominal abnormalities apart from Degenerative disk disease There are no neurological changes or deficits at this time Will continue to monitor q4h neurovascular checks of LEs Qualifiers: Back pain location: low back pain Chronicity: acute Back pain laterality: bilateral Sciatica presence: without sciatica Qualified Code(s): M54.5 - Low back pain (6) Hypertension Current Visit: Yes Status: Acute Assessment and plan: Continue home meds Qualifiers: Hypertension type: essential hypertension Qualified Code(s): I10 - Essential (primary) hypertension (7) Lung cancer Current Visit: Yes Status: Acute Assessment and plan: Appears stable Qualifiers: Laterality: unspecified laterality Lung location: unspecified part of lung Qualified Code(s): C34.90 - Malignant neoplasm of unspecified part of unspecified bronchus or lung (8) DVT prophylaxis Current Visit: Yes Status: Acute Assessment and plan: SQ Heparin - Time Spent With Patient Total time spent is greater than 50% in coordination of care (as documented) at patient's floor/unit and/or counseling patient: <Vania Ceron - Last Filed: 05/17/19 07:02> Date of Encounter: 05/16/19 Internal Medicine - H&P: HPI History of present illness: Mr. Fontanez is a 64 year old male Past Med Surg Social Fam HX - Family History Mother Hx Family Cancer: Yes (breast cancer) Father Adopted: No Living Status: Hx Family Cardiac Disorders: Yes (heart attack) Sister Hx Family Cancer: Yes (2 sisters cancer) Brother Hx Family Cancer: Yes (2 brothers) All Systems PM: A 10-system review of systems was performed and is negative for pertinent findings except as documented above in the HPI. - Constitutional Vitals: Temp Pulse Resp BP Pulse Ox 97.4 F L 74 14 144/80 96 05/17/19 06:36 05/17/19 06:36 05/17/19 06:36 05/17/19 06:36 05/17/19 06:36 Internal Med - H&P Results - Labs CBC & Chem 7: 05/17/19 01:37 05/17/19 01:37 Labs: Short CBC 05/16/19 05/17/19 Range/Units 18:11 01:37 WBC 14.0 H 11.6 H (4.3-11.1) K/mcL Hgb 15.3 14.9 (12.9-16.9) g/dL Hct 46.8 45.8 (37.5-50.1) % Plt Count 171 165 (140-400) K/mcL Neutrophils # 11.3 H 10.5 H (1.6-8.9) K/mcL BMP 05/16/19 05/17/19 18:11 01:37 Sodium 134 L 135 L Potassium 4.1 4.0 Chloride 101 104 Carbon Dioxide 24 23 BUN 14 13 Creatinine 0.79 0.80 Glucose 100 145 H Calcium 9.6 9.3 Cardiac Enzymes 05/16/19 Range/Units 18:11 Troponin I < 0.03 (< 0.04) ng/mL Liver Function 05/16/19 05/17/19 Range/Units 18:11 01:37 Total Bilirubin 0.5 0.4 (0.3-1.0) mg/dL AST 10 L 10 L (13-39) Units/L ALT 9 9 (7-52) Units/L Alkaline Phosphatase 68 72 (34-104) Units/L Albumin 4.1 4.1 (3.5-5.7) g/dL Urine 05/16/19 Range/Units 19:38 Urine Color Yellow (Yellow) Urine Clarity Clear (Clear) Urine pH 6.0 (5.0-8.0) pH Units Ur Specific [place] 1.019 (1.010-1.025) Urine Protein Trace (Neg-Trace) mg/dL Urine Glucose (UA) Normal (Normal) mg/dL - Impressions ITS Impressions Chest X-Ray 05/16/19 17:42 IMPRESSION: Emphysematous changes with chronic opacity left upper lung field and nonvisualization of a right upper lobe mass seen on chest CT from 1 month earlier. No new pulmonary process is suggested. CT scan would prove helpful for further assessment if clinically warranted. No acute osseous injury of the lumbar spine. D/ / 05/16/2019 19:22:30 Alden Mesa MD / jacqueline Interpreting Provider: Alden Mesa MD Lumbar Spine X-Ray 05/16/19 17:44 IMPRESSION: Emphysematous changes with chronic opacity left upper lung field and nonvisualization of a right upper lobe mass seen on chest CT from 1 month earlier. No new pulmonary process is suggested. CT scan would prove helpful for further assessment if clinically warranted. No acute osseous injury of the lumbar spine. D/ : / 05/16/2019 19:22:30 Alden Mesa MD / jacqueline Interpreting Provider: Alden Mesa MD Head CT 05/16/19 17:45 IMPRESSION: No acute intracranial abnormality. D/ / Dejuan Adler MD / Dejuan Adler MD Interpreting Provider: Dejuan Adler MD Chest CTA 05/16/19 18:57 IMPRESSION: No evidence of pulmonary embolism. Interval development of innumerable ground-glass and tree-in-bud nodules scattered throughout both lungs with peribronchial cuffing suggesting an acute atypical pneumonia. Enlarged mediastinal and bilateral hilar lymphadenopathy increased in size compared to prior chest CT. Reactive lymphadenopathy is favored over metastatic disease, however, recommend follow-up to resolution. Irregular spiculated right upper lobe and left upper lobe pulmonary nodules unchanged since prior examination suggesting stable metastatic disease/malignancy. No evidence of definite new pulmonary metastatic disease. D/ / 05/16/2019 20:08:19 Dejuan Adler MD / jacqueline Interpreting Provider: Dejuan Adler MD Abdomen/Pelvis CT 05/16/19 19:08 IMPRESSION: No acute abdominopelvic process. No evidence of metastatic disease. Multilevel degenerative change. 3.5 cm abdominal aortic aneurysm. RECOMMENDATIONS: Recommend follow-up every 2 years. Reference: J Am Sherman Radiol 2013;10:789-794. D/ / 05/16/2019 20:03:06 Nirav Correa / jacqueline Interpreting Provider: Nirav Correa - Time Spent With Patient Total time spent is greater than 50% in coordination of care (as documented) at patient's floor/unit and/or counseling patient: - Attending Attestation I performed a history and physical examination of the patient and discussed his management with the resident. I reviewed the residents note and agree with the documented findings and plan of care.
[2019-05-16] MEDS ORDERED: Naloxone 0.4 MG/ML INJ IVP PRN (21:36)
[2019-05-16] MEDS ORDERED: cefTRIAXone 1,000 MG in Water for inj. (sterile) 10 ML IVPB ONE (21:38)
[2019-05-16] MEDS ORDERED: 0.9 % Sodium Chloride 500 ML IVC ONE (21:57)
[2019-05-16] MEDS ORDERED: 0.9 % Sodium Chloride 1,000 ML IVC SCH ×2 (22:00→22:32)
[2019-05-16] MEDS: Budesonide/Formoterol 160/4.5 1 PUFF INH IH SCH (22:22)
[2019-05-16] MEDS: MethylPREDNISolone 40 MG/ML VIAL IVP SCH (23:34)
[2019-05-16] MEDS: Azithromycin 500 MG in D5% in Water 250 ML IVPB SCH (23:42)
[2019-05-16] MEDS: *HR* Heparin 5,000 UNIT/ML VIAL SQ SCH (23:47)
[2019-05-17 01:52] LABS: Basophils % 0.3 %; Eosinophils % 0.1 %; Hematocrit 45.8 % (37.5-50.1); Hemoglobin 14.9 g/dL (12.9-16.9); Immature Granulocytes % 0.4 % (0-4); Lymphocytes # 0.5 K/mcL (0.6-4.6); Lymphocytes % 4.3 %; Mean Corpuscular HGB Conc 32.5 g/dL (31.6-35.5); Mean Corpuscular Hemoglobin 30.5 pg (28.0-33.3); Mean Corpuscular Volume 93.9 fL (83.0-100.0); Mean Platelet Volume 11.4 fL (9.4-12.4); Monocytes # 0.5 K/mcL (0.0-1.3); Monocytes % 4.3 %; Neutrophils # 10.5 K/mcL (1.6-8.9); Platelet Count 165 K/mcL (140-400); Red Blood Count 4.88 M/mcL (4.19-5.50); Red Cell Distribution Width 15.3 % (11.5-14.5); Segmented Neutrophils % 90.6 %; White Blood Count 11.6 K/mcL (4.3-11.1)
[2019-05-17 02:05] LABS: INR 1.1; Prothrombin Time 12.8 Seconds (9.4-12.1)
[2019-05-17 02:09] LABS: Alanine Aminotransferase 9 Units/L (7-52); Albumin 4.1 g/dL (3.5-5.7); Albumin/Globulin Ratio 1.2 (1.1-2.2); Alkaline Phosphatase 72 Units/L (34-104); Aspartate Amino Transferase 10 Units/L (13-39); BUN/Creatinine Ratio 16 (6-26); Bilirubin,Total 0.4 mg/dL (0.3-1.0); Blood Urea Nitrogen 13 mg/dL (8-23); Calcium 9.3 mg/dL (8.6-10.3); Carbon Dioxide 23 mEq/L (23-29); Chloride 104 mEq/L (98-107); Globulin 3.3 g/dL (2.4-3.5); Glucose 145 mg/dL (70-105); Magnesium 1.9 mg/dL (1.6-2.6); Osmolality,Calculated 283 (280-300); Sodium 135 mEq/L (136-145); Total Protein 7.4 g/dL (6.4-8.9); eGFR For African Americans > 60 (> 60); eGFR For Non-African Americans > 60 (> 60)
[2019-05-17] MEDS ORDERED: Acetaminophen 325 MG TABLET PO PRN (02:35)
[2019-05-17] MEDS: *HR* Heparin 5,000 UNIT/ML VIAL SQ SCH ×3 (06:34→22:24)
[2019-05-17] MEDS: Budesonide/Formoterol 160/4.5 1 PUFF INH IH SCH ×2 (08:07→21:13)
[2019-05-17] MEDS: Ipratropium/Albuterol Neb 3 ML IH PRN ×2 (08:07→21:13)
[2019-05-17] MEDS: Nicotine 14 MG PATCH.TD24 TD SCH (08:31)
[2019-05-17] MEDS: MethylPREDNISolone 40 MG/ML VIAL IVP SCH ×3 (08:31→23:35)
[2019-05-17] MEDS: cloNIDine HCl 0.1 MG TABLET PO SCH ×3 (08:31→20:43)
[2019-05-17] MEDS: Losartan/HCTZ 50-12.5 TABLET PO SCH (08:32)
--- NOTE | 2019-05-17 12:28 | Internal Med Progress Note ---
Hospitalist Progress Note - Encounter Date of Encounter: 05/17/19 Time of Encounter: 08:55 - Subjective Interval History: No acute events. Patient wants to know when he will go home. He had missed some shortness of breath but denies chest pain, palpitations and lightheadedness - Exam Vitals: Temp Pulse Resp BP Pulse Ox 36.3 C L 79 14 127/78 97 05/17/19 12:00 05/17/19 12:00 05/17/19 12:00 05/17/19 12:00 05/17/19 12:00 Exam: Gen: Vitals noted. Appears very minimally distressed Eyes: anicteric sclerae, moist conjunctivae; no lid-lag; Pupils equal and reactive to light HENT: Atraumatic; oropharynx clear with moist mucous membranes and no mucosal ulcerations; normal hard and soft palate Neck: Trachea midline; supple, no thyromegaly or lymphadenopathy Cardiac: RRR, no murmur, +S1/S2 Pulmonary: Diffuse bilateral wheezes Abdomen: soft, nontender, no guarding. No masses or hepatosplenomegaly MSK: ROM intact, no joint swelling noted Extremities: no BLE edema, nontender calf, no cyanosis or clubbing Skin: Normal temperature, turgor and texture; no rash, ulcers or subcutaneous nodules Neuro: moves all extremities, no focal deficits. Muscle strength 5/5 in all four extremities, no saddle anesthesia present. Psych: Appropriate mood and behavior. A&Ox3 - Assessment and Plan (1) Acute and chronic respiratory failure with hypoxia Current Visit: Yes Status: Acute Assessment and Plan: Patient remains on 2L of oxygen He states that he is feeling much better Will attempt to wean him off gradually as we continue antibiotics (2) Back pain Current Visit: Yes Status: Acute Assessment and Plan: Complained of low back pain on admission Currently states that it has improves CT showed degenerative changes Will give PRn analgesia (3) COPD (chronic obstructive pulmonary disease) Current Visit: Yes Status: Acute Assessment and Plan: Pateint continues to have some wheezing on exam Uses 2L of oxygen in the night at home. Currently on daytime 2L in hospital. Contnue breathing treatments and solu-medrol (4) DVT prophylaxis Current Visit: Yes Status: Acute Assessment and Plan: SQ Heparin (5) Hypertension Current Visit: Yes Status: Acute Assessment and Plan: BP controlled On home meds. (6) Lung cancer Current Visit: Yes Status: Acute Assessment and Plan: CT on admission showed irregular spiculated right upper lobe and left lower lobe pulmonary nodules suggestive of stable metastatic disease. Will continue INO2 (7) Pneumonia Current Visit: Yes Status: Acute Assessment and Plan: Presented wth fever, SOB, tachypnea and tachycardia CT: Interal development of innumerable ground-glass and tree-in-bud nodules scattered throughout both lungs with peribronchial cuffing suggestive an acute atypical pneumonia Continue IV Azithromycin and Ceftriaxone. (8) Sepsis Current Visit: Yes Status: Acute Assessment and Plan: Met SIRS criteria on admission Vitals have currently stabilized WBC 11.6<14 Continue IV antibiotics. - Time Spent with Patient Total time spent is greater than 50% in coordination of care (as documented) at patient's floor/unit and/or counseling patient: Internal Medicine: Result - Labs CBC & Chem 7: 05/17/19 01:37 05/17/19 01:37 Labs: Short CBC 05/16/19 05/17/19 Range/Units 18:11 01:37 WBC 14.0 H 11.6 H (4.3-11.1) K/mcL Hgb 15.3 14.9 (12.9-16.9) g/dL Hct 46.8 45.8 (37.5-50.1) % Plt Count 171 165 (140-400) K/mcL Neutrophils # 11.3 H 10.5 H (1.6-8.9) K/mcL BMP 05/16/19 05/17/19 18:11 01:37 Sodium 134 L 135 L Potassium 4.1 4.0 Chloride 101 104 Carbon Dioxide 24 23 BUN 14 13 Creatinine 0.79 0.80 Glucose 100 145 H Calcium 9.6 9.3 Cardiac Enzymes 05/16/19 Range/Units 18:11 Troponin I < 0.03 (< 0.04) ng/mL Liver Function 05/16/19 05/17/19 Range/Units 18:11 01:37 Total Bilirubin 0.5 0.4 (0.3-1.0) mg/dL AST 10 L 10 L (13-39) Units/L ALT 9 9 (7-52) Units/L Alkaline Phosphatase 68 72 (34-104) Units/L Albumin 4.1 4.1 (3.5-5.7) g/dL Urine 07/20/19 Range/Units 19:38 Urine Color Yellow (Yellow) Urine Clarity Clear (Clear) Urine pH 6.0 (5.0-8.0) pH Units Ur Specific [place] 1.019 (1.010-1.025) Urine Protein Trace (Neg-Trace) mg/dL Urine Glucose (UA) Normal (Normal) mg/dL - ABG Interpretation ABG results: PT/INR, D-dimer PT 12.8 Seconds (9.4-12.1) H 05/17/19 01:37 D-Dimer 869 ng/mLFEU (0-500) H 05/16/19 18:11 - Impressions Impressions Chest X-Ray 05/16/19 17:42 IMPRESSION: Emphysematous changes with chronic opacity left upper lung field and nonvisualization of a right upper lobe mass seen on chest CT from 1 month earlier. No new pulmonary process is suggested. CT scan would prove helpful for further assessment if clinically warranted. No acute osseous injury of the lumbar spine. D/ / 05/16/2019 19:22:30 Alden Mesa MD / jacqueline Interpreting Provider: Alden Mesa MD Lumbar Spine X-Ray 05/16/19 17:44 IMPRESSION: Emphysematous changes with chronic opacity left upper lung field and nonvisualization of a right upper lobe mass seen on chest CT from 1 month earlier. No new pulmonary process is suggested. CT scan would prove helpful for further assessment if clinically warranted. No acute osseous injury of the lumbar spine. D/ / 05/16/2019 19:22:30 Alden Mesa MD / jacqueline Interpreting Provider: Alden Mesa MD Head CT 05/16/19 17:45 IMPRESSION: No acute intracranial abnormality. D/ / Dejuan Adler MD / Dejuan Adler MD Interpreting Provider: Dejuan Adler MD Chest CTA 05/16/19 18:57 IMPRESSION: No evidence of pulmonary embolism. Interval development of innumerable ground-glass and tree-in-bud nodules scattered throughout both lungs with peribronchial cuffing suggesting an acute atypical pneumonia. Enlarged mediastinal and bilateral hilar lymphadenopathy increased in size compared to prior chest CT. Reactive lymphadenopathy is favored over metastatic disease, however, recommend follow-up to resolution. Irregular spiculated right upper lobe and left upper lobe pulmonary nodules unchanged since prior examination suggesting stable metastatic disease/malignancy. No evidence of definite new pulmonary metastatic disease. D/ / 05/16/2019 20:08:19 Dejuan Adler MD / jacqueline Interpreting Provider: Dejuan Adler MD Abdomen/Pelvis CT 05/16/19 19:08 IMPRESSION: No acute abdominopelvic process. No evidence of metastatic disease. Multilevel degenerative change. 3.5 cm abdominal aortic aneurysm. RECOMMENDATIONS: Recommend follow-up every 2 years. Reference: J Am Sherman Radiol 2013;10:789-794. D/ / 05/16/2019 20:03:06 Nirav Correa / jacqueline Interpreting Provider: Nirav Correa Consult Discharge Plan - Plan Referrals: Lubna Alonso, SCHOOL SUPERINTENDENT [Primary Care Provider] - (2) Back pain Qualifiers: Back pain location: low back pain Chronicity: acute Back pain laterality: bilateral Sciatica presence: without sciatica Qualified Code(s): M54.5 - Low back pain (3) COPD (chronic obstructive pulmonary disease) Qualifiers: COPD type: COPD with acute exacerbation Qualified Code(s): J44.1 - Chronic obstructive pulmonary disease with (acute) exacerbation (5) Hypertension Qualifiers: Hypertension type: essential hypertension Qualified Code(s): I10 - Essential (primary) hypertension (6) Lung cancer Qualifiers: Laterality: unspecified laterality Lung location: unspecified part of lung Qualified Code(s): C34.90 - Malignant neoplasm of unspecified part of unspecified bronchus or lung (7) Pneumonia Qualifiers: Pneumonia type: due to unspecified organism Laterality: unspecified laterality Lung location: unspecified part of lung Qualified Code(s): J18.9 - Pneumonia, unspecified organism (8) Sepsis Qualifiers: Sepsis type: sepsis due to unspecified organism Qualified Code(s): A41.9 - Sepsis, unspecified organism
[2019-05-17] MEDS: Azithromycin 500 MG in D5% in Water 250 ML IVPB SCH (22:25)
[2019-05-18] MEDS: *HR* Heparin 5,000 UNIT/ML VIAL SQ SCH ×3 (06:20→22:40)
[2019-05-18] MEDS: Budesonide/Formoterol 160/4.5 1 PUFF INH IH SCH ×2 (07:47→22:07)
[2019-05-18] MEDS: Nicotine 14 MG PATCH.TD24 TD SCH (07:52)
[2019-05-18] MEDS: Losartan/HCTZ 50-12.5 TABLET PO SCH (07:52)
[2019-05-18] MEDS: MethylPREDNISolone 40 MG/ML VIAL IVP SCH (07:52)
[2019-05-18] MEDS: cloNIDine HCl 0.1 MG TABLET PO SCH (07:52)
--- NOTE | 2019-05-18 11:34 | Internal Med Progress Note ---
Hospitalist Progress Note - Encounter Date of Encounter: 05/18/19 Time of Encounter: 11:23 - Subjective Interval History: Patient seen and examined this morning at bedside. No acute overnight events. Feeling much better. Still with some cough and shortness of breath. Denies any chest pain. Wants to go home. - Exam Vitals: Temp Pulse Resp BP Pulse Ox 97.9 F 61 17 90/57 95 05/18/19 10:55 05/18/19 10:55 05/18/19 10:55 05/18/19 10:55 05/18/19 10:55 Exam: General: In no acute distress. Respiratory exam: no accessory muscle use. diffuse wheezing Cardiovascular exam: RRR, +S1, +S2. no murmur, gallop, rubs. GI/Abdominal exam: Non-tender, Non-distended, normal bowel sounds, soft, no peritoneal signs. Extremities exam: no pedal edema, pulses palpable in b/l lower extremities. no calf tenderness Neurological exam: CN II-XII intact, AO X3, no focal deficits. Skin exam: scar on face - Assessment and Plan (1) Lung cancer Current Visit: Yes Status: Acute (2) Sepsis Current Visit: Yes Status: Acute (3) Pneumonia Current Visit: Yes Status: Acute (4) COPD (chronic obstructive pulmonary disease) Current Visit: Yes Status: Acute (5) Back pain Current Visit: Yes Status: Acute (6) Hypertension Current Visit: Yes Status: Acute (7) Acute and chronic respiratory failure with hypoxia Current Visit: Yes Status: Acute (8) DVT prophylaxis Current Visit: Yes Status: Acute - Summary of Assessment and Plan Summary of Assessment and Plan: Assessment Acute Acute and chronic respiratory failure with hypoxia Back pain Chronic COPD CAD HTN HLD lung ca Plan - CTA with finding of atypical pnuemonia and reactive b/l Hilar nodes. Will need follow up to resolution. - c/w ceftriaxone and azithromycin and supplemental oxygen. - CT abdomen without metastatic disease. showed degenerative changes and 3.5 AAA. - c/w duonebs. Taper steroid. f/u Blood and sputum cultures. Urine ag negative - SQ Heparin for dvt - Hold home BP meds. BP low Internal Medicine: Result - Labs CBC & Chem 7: 05/17/19 01:37 05/17/19 01:37 - ABG Interpretation ABG results: PT/INR, D-dimer PT 12.8 Seconds (9.4-12.1) H 05/17/19 01:37 D-Dimer 869 ng/mLFEU (0-500) H 05/16/19 18:11 Consult Discharge Plan - Plan Referrals: Lubna Alonso CNP [Primary Care Provider] - _ (1) Lung cancer Qualifiers: Laterality: unspecified laterality Lung location: unspecified part of lung Qualified Code(s): C34.90 - Malignant neoplasm of unspecified part of unspecified bronchus or lung (2) Sepsis Qualifiers: Sepsis type: sepsis due to unspecified organism Qualified Code(s): A41.9 - Sepsis, unspecified organism (3) Pneumonia Qualifiers: Pneumonia type: due to unspecified organism Laterality: unspecified l aterality Lung location: unspecified part of lung Qualified Code(s): J18.9 - Pneumonia, unspecified organism (4) COPD (chronic obstructive pulmonary disease) Qualifiers: COPD type: COPD with acute exacerbation Qualified Code(s): J44.1 - Chronic obstructive pulmonary disease with (acute) exacerbation (5) Back pain Qualifiers: Back pain location: low back pain Chronicity: acute Back pain laterality: bilateral Sciatica presence: without sciatica Qualified Code(s): M54.5 - Low back pain (6) Hypertension Qualifiers: Hypertension type: essential hypertension Qualified Code(s): I10 - Essential (primary) hypertension
[2019-05-18] MEDS: cefTRIAXone 1,000 MG in Water for inj. (sterile) 10 ML IVP SCH (11:51)
[2019-05-18] MEDS: predniSONE 20 MG TABLET PO SCH (11:51)
[2019-05-18] MEDS ORDERED: Ipratropium/Albuterol Neb 3 ML IH PRN (14:00)
[2019-05-18] MEDS: Ipratropium/Albuterol Neb 3 ML IH SCH ×2 (14:19→22:07)
[2019-05-18] MEDS: Azithromycin 500 MG in D5% in Water 250 ML IVPB SCH (22:41)
[2019-05-19] MEDS: Ipratropium/Albuterol Neb 3 ML IH SCH ×2 (04:14→09:45)
[2019-05-19] MEDS: *HR* Heparin 5,000 UNIT/ML VIAL SQ SCH (05:50)
[2019-05-19] MEDS: predniSONE 20 MG TABLET PO SCH (08:18)
[2019-05-19] MEDS: cefTRIAXone 1,000 MG in Water for inj. (sterile) 10 ML IVP SCH (08:18)
[2019-05-19] MEDS: Nicotine 14 MG PATCH.TD24 TD SCH (08:18)
[2019-05-19] MEDS: Losartan/HCTZ 50-12.5 TABLET PO SCH (08:32)
[2019-05-19] MEDS: Budesonide/Formoterol 160/4.5 1 PUFF INH IH SCH (09:46)
[2019-05-19 11:09] VITALS: BP 147/93
--- NOTE | 2019-05-19 11:35 | Discharge Summary ---
- NOTES TO OUTPATIENT PROVIDER Notes to Outpatient Provider: Patient will need follow-up with pulmonology in 4- 6 weeks for COPD and follow-up CT for resolution of pneumonia and lymphadenopathy. Discharged with 7 day course of antibiotics and Prednisone taper 2 weeks Orders not resulted at time of discharge: Pending orders 05/16/19 17:42 ECG 12 lead ECG [ECG] Stat 05/16/19 20:24 Culture,Blood [BC] Stat 05/16/19 21:39 Culture,Sputum with Gram Stain [RM] Routine Date of Encounter: 05/19/19 Time of Encounter: 11:28 - Discharge Diagnosis (1) Lung cancer Priority: Secondary Status: Acute Qualifiers: Laterality: unspecified laterality Lung location: unspecified part of lung Qualified Code(s): C34.90 - Malignant neoplasm of unspecified part of unspecified bronchus or lung (2) Sepsis Priority: Primary Status: Acute Qualifiers: Sepsis type: sepsis due to unspecified organism Qualified Code(s): A41.9 - Sepsis, unspecified organism (3) Pneumonia Priority: Primary Status: Acute Qualifiers: Pneumonia type: due to unspecified organism Laterality: unspecified laterality Lung location: unspecified part of lung Qualified Code(s): J18.9 - Pneumonia, unspecified organism (4) COPD (chronic obstructive pulmonary disease) Priority: Primary Status: Acute Qualifiers: COPD type: COPD with acute exacerbation Qualified Code(s): J44.1 - Chronic obstructive pulmonary disease with (acute) exacerbation (5) Back pain Priority: Secondary Status: Acute Qualifiers: Back pain location: low back pain Chronicity: acute Back pain laterality: bilateral Sciatica presence: without sciatica Qualified Code(s): M54.5 - Low back pain (6) Hypertension Priority: Secondary Status: Acute Qualifiers: Hypertension type: essential hypertension Qualified Code(s): I10 - Essential (primary) hypertension (7) Acute and chronic respiratory failure with hypoxia Priority: Primary Status: Acute (8) DVT prophylaxis Priority: Secondary Status: Acute Hospital course: Mr. Fontanez is a 64 year old male with past medical history of COPD, coronary artery disease, hypertension, hyperlipidemia, lung cancer admitted with complain of weakness and shortness of breath. Patient was admitted with signs of sepsis and acute on chronic respiratory failure with hypoxia secondary to pneumonia and COPD exacerbation. Recent had a CTA chest and CT abdomen pelvis for back pain. There was no PE however there were signs of atypical pneumonia as well as lymphadenopathy increased compared to prior imaging and stable spiculated right upper lobe nodule. CT abdomen and pelvis obtained due to history of lung cancer and back pain did not show any metastasis process episode 3.5 cm AAA. Patient was started on empiric antibiotics with ceftriaxone and azithromycin. He was also started on IV steroids and bronchodilators for COPD exacerbation. Blood cultures urine antigen sputum cultures remain negative. Patient's sepsis resolved. Given low blood pressure his clonidine was held. Patient did well over the course of his 40 of hospital stay. He wants to go home today and will need to stable enough to be discharged to follow-up with PCP within 1-2 weeks. We will discharged with 7 day course of antibiotic and steroid taper. We will change his clonidine to hydralazine given the side effect of rebound hypertension with clonidine. I asked patient to monitor blood pressure closely. Patient will need follow-up CT in 4-6 weeks for resolution and follow-up with pulmonology. Patient did change his mind regarding his code status after discussing with granddaughter and was to be full code as of now. He qualified for oxygen which was arranged. Discharge discussed with: patient, family, nurse, case management - Time Spent with Patient Total time spent providing and/or coordinating discharge services: Time spent: Greater than 30 minutes (40) - Discharge Medications Prescriptions: New Amoxicillin/Clavulanate [Augmentin] 875 mg PO BIDWM 3 Days #6 tablet hydrALAZINE [HydrALAZINE] 10 mg PO Q12H 30 Days #60 tablet predniSONE [PredniSONE] See Taper PO DAILY 12 Days #30 tablet Azithromycin [Zithromax Tri-Antwan] 500 mg PO DAILY 3 Days #3 tablet Continued Budesonide/Formoterol 160/4.5 [Symbicort 160/4.5] 2 puff IH BIDR Albuterol Neb [Proventil Neb] 2.5 mg IH Q4H PRN PRN Reason: Shortness Of Breath Albuterol Sulfate [Ventolin Hfa] 2 puff IH Q4H PRN PRN Reason: Wheezing Losartan/Hydrochlorothiazide [Hyzaar 100-25 Tablet] 1 each PO DAILY Ergocalciferol (VITAMIN D2) [Vitamin D2] 50,000 unit PO FR Simvastatin [Zocor] 40 mg PO HS Discontinued cloNIDine HCl [Clonidine HCl] 0.2 mg PO TID Home Medications: Albuterol Neb [Proventil Neb] 2.5 mg IH Q4H PRN 06/06/18 [History] Albuterol Sulfate [Ventolin Hfa] 2 puff IH Q4H PRN 06/06/18 [History] Budesonide/Formoterol 160/4.5 [Symbicort 160/4.5] 2 puff IH BIDR 06/06/18 [History] Ergocalciferol (VITAMIN D2) [Vitamin D2] 50,000 unit PO FR 06/06/18 [History] Losartan/Hydrochlorothiazide [Hyzaar 100-25 Tablet] 1 each PO DAILY 06/06/18 [History] Simvastatin [Zocor] 40 mg PO HS 05/18/19 [History] Amoxicillin/Clavulanate [Augmentin] 875 mg PO BIDWM 3 Days #6 tablet 05/19/19 [Rx] Azithromycin [Zithromax Tri-Antwan] 500 mg PO DAILY 3 Days #3 tablet 05/19/19 [Rx] hydrALAZINE [HydrALAZINE] 10 mg PO Q12H 30 Days #60 tablet 05/19/19 [Rx] predniSONE [PredniSONE] See Taper PO DAILY 12 Days #30 tablet 05/19/19 [Rx] Allergies/Adverse Reactions: Allergy/AdvReac Type Severity Reaction Status Date / Time No Known Allergies Allergy Verified 05/18/19 22:01 Date of admission: 05/16/19 20:54 Primary care physician: Lubna Alonso CNP Consults: 05/19/19 09:13 Consult to Nurse Navigator [CONS] Routine Comment: copd Discharging clinician: Damien Wagner - Constitutional Vitals: Temp Pulse Resp BP Pulse Ox 97.9 F 70 14 147/93 91 05/19/19 11:03 05/19/19 11:03 05/19/19 11:03 05/19/19 11:03 05/19/19 11:03 Exam: General: In no acute distress. Respiratory exam: no accessory muscle use. minimal wheezing Cardiovascular exam: RRR, +S1, +S2. no murmur, gallop, rubs. GI/Abdominal exam: Non-tender, Non-distended, normal bowel sounds, soft, no peritoneal signs. Extremities exam: no pedal edema, pulses palpable in b/l lower extremities. no calf tenderness Neurological exam: CN II-XII intact, AO X3, no focal deficits. Skin exam: scar on face - Patient Status Disposition: Home, Self-Care Condition: Fair - Discharge Instructions Follow Up With: Lubna Alonso CNP [Primary Care Provider] - - Diet and Activity Activity: wear oxygen at all times
--- NOTE | 2019-05-19 13:56 | Electrocardiograph Report ---
[facility] Test Date: 2019-05-16 Pat Name: Abraham Fontanez Department: [id number] Room: 3A41 Gender: M [employer] Fleet Supervisor: : [id number] Requested By: Willy Nelson Order Number: [id number] Reading MD: Chinmay Hubbard Measurements Intervals [place] Rate: 91 P: 67 IA: 165 QRS: 5 QRSD: 101 T: 79 QT: 346 QTc: 426 Interpretive Statements Sinus rhythm wnl Electronically Signed On 05-19-2019 13:54:36 EDT by Chinmay Hubbard
== END 2019-05-19 13:16 | disposition home or self-care (01) ==
LOC: 3ANU 17:08 → EMEROOARM 17:08 → SUATTDRO 20:54 → 3ANU 21:36
PROVIDERS: ADMIT Internal Medicine; ATTEND Internal Medicine

== ENCOUNTER 2021-04-05 18:17 | Inpatient (IN) ==
[2021-04-05] MEDS ORDERED: *HR* Promethazine 25 MG/ML VIAL IM PRN (22:46)
[2021-04-05] MEDS ORDERED: Ondansetron 4 MG/2 ML VIAL IVP PRN (22:46)
[2021-04-05] MEDS ORDERED: methylPREDNISolone 125 MG/2 ML VIAL IVP ONE (22:47)
[2021-04-05] MEDS ORDERED: Albuterol 2.5 MG/3 ML NEBULIZER IH PRN (22:47)
[2021-04-05] MEDS ORDERED: Naloxone 0.4 MG/ML INJ IVP PRN (22:49)
[2021-04-05] MEDS ORDERED: Melatonin 3 MG TABLET PO PRN (22:49)
[2021-04-05] MEDS ORDERED: *HR* HYDROcodone/Acet 5/325 mg TABLET PO PRN (22:49)
[2021-04-05] MEDS: Albuterol 2.5 MG/3 ML NEBULIZER IH SCH (23:45)
[2021-04-06] MEDS: Albuterol 2.5 MG/3 ML NEBULIZER IH SCH ×3 (04:00→07:20)
[2021-04-06 05:13] LABS: Basophils % 0.4 %; Eosinophils % 0.3 %; Hematocrit 42.8 % (37.5-50.1); Hemoglobin 13.3 g/dL (12.9-16.9); Immature Granulocytes % 0.6 % (0-4); Lymphocytes # 0.6 K/mcL (0.6-4.6); Lymphocytes % 8.6 %; Mean Corpuscular HGB Conc 31.1 g/dL (31.6-35.5); Mean Corpuscular Volume 96.6 fL (83.0-100.0); Mean Platelet Volume 11.9 fL (9.4-12.4); Monocytes # 0.1 K/mcL (0.0-1.3); Monocytes % 1.4 %; Neutrophils # 6.3 K/mcL (1.6-8.9); Platelet Count 176 K/mcL (140-400); Red Blood Count 4.43 M/mcL (4.19-5.50); Red Cell Distribution Width 15.7 % (11.5-14.5); Segmented Neutrophils % 88.7 %; White Blood Count 7.1 K/mcL (4.3-11.1)
[2021-04-06 05:22] LABS: Prothrombin Time 11.8 Seconds (9.4-12.1)
[2021-04-06 05:31] LABS: Alanine Aminotransferase 10 Units/L (7-52); Albumin 4.3 g/dL (3.5-5.7); Albumin/Globulin Ratio 1.6 (1.1-2.2); Alkaline Phosphatase 38 Units/L (34-104); Aspartate Amino Transferase 13 Units/L (13-39); BUN/Creatinine Ratio 30 (6-26); Bilirubin,Total 0.3 mg/dL (0.3-1.0); Blood Urea Nitrogen 18 mg/dL (8-23); Calcium 9.5 mg/dL (8.6-10.3); Carbon Dioxide 28 mEq/L (23-29); Chloride 103 mEq/L (98-107); Globulin 2.7 g/dL (2.4-3.5); Glucose 150 mg/dL (70-105); Osmolality,Calculated 289 (280-300); Potassium 4.4 mEq/L (3.5-5.1); Sodium 137 mEq/L (136-145); eGFR For African Americans > 60 (> 60); eGFR For Non-African Americans > 60 (> 60)
[2021-04-06] MEDS ORDERED: *HR* FentaNYL (PF) 100 MCG/2 ML VIAL ONE (08:33)
[2021-04-06] MEDS ORDERED: Lidocaine -MPF 4% 5 ML AMPUL ONE (08:33)
[2021-04-06] MEDS ORDERED: Ondansetron 4 MG/2 ML VIAL ONE (08:33)
[2021-04-06] MEDS ORDERED: *HR* Succinylcholine 200 MG/10 ML VIAL IVP ONE (08:33)
[2021-04-06] MEDS ORDERED: *HR* Propofol 200 MG/20 ML VIAL IVP ONE (08:33)
[2021-04-06] MEDS ORDERED: Ondansetron 4 MG/2 ML VIAL IVP PRN (08:38)
[2021-04-06] MEDS ORDERED: *HR* HYDROcodone/Acet 5/325 mg TABLET PO PRN (08:38)
[2021-04-06] MEDS ORDERED: *HR* FentaNYL (PF) 100 MCG/2 ML VIAL IVP PRN (08:38)
[2021-04-06] MEDS ORDERED: Ipratropium/Albuterol Neb 3 ML IH PRN (08:43)
[2021-04-06] MEDS ORDERED: *HR* EPINEPHrine 1 MG/10 ML SYRINGE INTRATRACH PRN (08:47)
[2021-04-06] MEDS ORDERED: EPHEDrine 50 MG/ML VIAL ONE (08:56)
[2021-04-06] MEDS ORDERED: predniSONE 20 MG TABLET PO SCH (09:00)
[2021-04-06 09:34] LABS: Phosphorous 3.9 mg/dL (2.7-4.5)
[2021-04-06] MEDS ORDERED: Albuterol 2.5 MG/3 ML NEBULIZER ONE (09:36)
[2021-04-06] MEDS ORDERED: Albuterol 2.5 MG/3 ML NEBULIZER IH ONE (09:43)
[2021-04-06] MEDS ORDERED: Ipratropium/Albuterol Neb 3 ML IH ONE (09:52)
[2021-04-06] MEDS: cefTRIAXone 1,000 MG in Water for inj. (sterile) 10 ML IVP SCH (11:34)
[2021-04-06] MEDS: Azithromycin 500 MG in 0.9 % Sodium Chloride 250 ML IVPB SCH (11:35)
[2021-04-06] MEDS: Budesonide/Formoterol 160/4.5 1 PUFF INH IH SCH ×2 (11:42→20:04)
[2021-04-06] MEDS: Ipratropium/Albuterol Neb 3 ML IH SCH ×4 (11:44→23:35)
[2021-04-06 12:00] LABS: VBG HCO3 29 mEq/L (21-27); VBG PCO2 54 mmHg (41-51); VBG PH 7.34 pH Units (7.32-7.42); VBG PO2 47 mmHg (25-50)
[2021-04-06 12:11] LABS: ABG Base Excess 1 mEq/L (-2 to 3); ABG HCO3 28 mEq/L (21-27); ABG Oxygen Saturation 88 % (95-98); ABG PCO2 52 mmHg (35-45); ABG PH 7.33 pH Units (7.32-7.45); ABG PO2 60 mmHg (85-104); ABG TCO2 29 mEq/L (20-26)
[2021-04-06] MEDS ORDERED: Isovue-370 500 ML BOTTLE IVP ONE (12:39)
[2021-04-06] MEDS: MethylPREDNISolone 40 MG/ML VIAL IVP SCH ×2 (13:26→17:32)
[2021-04-06] MEDS: Nicotine 21 MG PATCH.TD24 TD SCH (13:27)
[2021-04-06 16:14] LABS: Appearance of Body Fluid Slightly Hazy (Clear); Volume of Body Fluid 14 mL
[2021-04-06 16:14] LABS: Appearance of Body Fluid Slightly Hazy (Clear); Volume of Body Fluid 21 mL
[2021-04-06] MEDS ORDERED: Isovue-370 500 ML BOTTLE PO ONE (16:39)
[2021-04-06 16:50] LABS: Hematocrit 39.4 % (37.5-50.1)
[2021-04-06] MEDS: hydrALAZINE 10 MG TABLET PO SCH (22:11)
[2021-04-07 02:37] LABS: Hematocrit 36.3 % (37.5-50.1); Hemoglobin 11.6 g/dL (12.9-16.9); Immature Granulocytes % 0.5 % (0-4); Lymphocytes # 0.9 K/mcL (0.6-4.6); Mean Corpuscular Hemoglobin 30.9 pg (28.0-33.3); Mean Corpuscular Volume 96.5 fL (83.0-100.0); Mean Platelet Volume 12.5 fL (9.4-12.4); Monocytes # 0.7 K/mcL (0.0-1.3); Monocytes % 8.7 %; Neutrophils # 6.3 K/mcL (1.6-8.9); Platelet Count 174 K/mcL (140-400); Red Blood Count 3.76 M/mcL (4.19-5.50); Red Cell Distribution Width 15.5 % (11.5-14.5); Segmented Neutrophils % 79.8 %; White Blood Count 7.8 K/mcL (4.3-11.1)
[2021-04-07 03:03] LABS: % Iron Saturation 23 % (20-55); Alanine Aminotransferase 8 Units/L (7-52); Albumin/Globulin Ratio 1.7 (1.1-2.2); Alkaline Phosphatase 31 Units/L (34-104); Aspartate Amino Transferase 10 Units/L (13-39); BUN/Creatinine Ratio 25 (6-26); Bilirubin,Total 0.3 mg/dL (0.3-1.0); Blood Urea Nitrogen 15 mg/dL (8-23); Calcium 9.5 mg/dL (8.6-10.3); Carbon Dioxide 28 mEq/L (23-29); Chloride 101 mEq/L (98-107); Globulin 2.3 g/dL (2.4-3.5); Glucose 128 mg/dL (70-105); Iron 74 mcg/dL (65-175); Magnesium 1.9 mg/dL (1.6-2.6); Osmolality,Calculated 284 (280-300); Phosphorous 2.7 mg/dL (2.7-4.5); Potassium 4.4 mEq/L (3.5-5.1); Sodium 136 mEq/L (136-145); Total Protein 6.3 g/dL (6.4-8.9); Transferrin 229 mg/dL (203-362); eGFR For African Americans > 60 (> 60); eGFR For Non-African Americans > 60 (> 60)
[2021-04-07 03:15] LABS: Ferritin 61 ng/mL (20-250)
[2021-04-07 03:19] LABS: Folate 6.6 ng/mL (3.0-16.0)
[2021-04-07] MEDS: Ipratropium/Albuterol Neb 3 ML IH SCH ×6 (03:59→23:34)
[2021-04-07] MEDS: MethylPREDNISolone 40 MG/ML VIAL IVP SCH ×2 (05:46→19:00)
[2021-04-07] MEDS: Budesonide/Formoterol 160/4.5 1 PUFF INH IH SCH ×2 (07:34→20:17)
[2021-04-07] MEDS ORDERED: Iron Sucrose Complex 400 MG in 0.9 % Sodium Chloride 250 ML IVPB ONE (08:25)
[2021-04-07] MEDS: Azithromycin 500 MG in 0.9 % Sodium Chloride 250 ML IVPB SCH (08:31)
[2021-04-07] MEDS: Losartan/HCTZ 50-12.5 TABLET PO SCH (08:31)
[2021-04-07] MEDS: hydrALAZINE 10 MG TABLET PO SCH ×2 (08:36→20:23)
[2021-04-07] MEDS: Nicotine 21 MG PATCH.TD24 TD SCH (08:37)
[2021-04-07] MEDS: cefTRIAXone 1,000 MG in Water for inj. (sterile) 10 ML IVP SCH (08:45)
[2021-04-07] MEDS: Cyanocobalamin (B-12) 1,000 MCG TABLET PO SCH (09:11)
[2021-04-07 09:29] LABS: Hematocrit 39.4 % (37.5-50.1)
[2021-04-08 03:26] LABS: Basophils % 0.1 %; Hematocrit 37.3 % (37.5-50.1); Hemoglobin 11.7 g/dL (12.9-16.9); Immature Granulocytes % 0.3 % (0-4); Lymphocytes # 0.9 K/mcL (0.6-4.6); Lymphocytes % 11.3 %; Mean Corpuscular HGB Conc 31.4 g/dL (31.6-35.5); Mean Corpuscular Hemoglobin 30.2 pg (28.0-33.3); Mean Corpuscular Volume 96.4 fL (83.0-100.0); Mean Platelet Volume 12.1 fL (9.4-12.4); Monocytes # 0.7 K/mcL (0.0-1.3); Monocytes % 9.4 %; Platelet Count 176 K/mcL (140-400); Red Blood Count 3.87 M/mcL (4.19-5.50); Red Cell Distribution Width 15.6 % (11.5-14.5); Segmented Neutrophils % 78.9 %; White Blood Count 7.5 K/mcL (4.3-11.1)
[2021-04-08] MEDS ORDERED: *HR* Labetalol 20 MG/4 ML SYRINGE IVP ONE (03:48)
[2021-04-08 03:49] LABS: Alanine Aminotransferase 9 Units/L (7-52); Albumin/Globulin Ratio 1.7 (1.1-2.2); Alkaline Phosphatase 28 Units/L (34-104); Aspartate Amino Transferase 13 Units/L (13-39); BUN/Creatinine Ratio 27 (6-26); Bilirubin,Total 0.3 mg/dL (0.3-1.0); Blood Urea Nitrogen 16 mg/dL (8-23); Calcium 9.7 mg/dL (8.6-10.3); Carbon Dioxide 29 mEq/L (23-29); Chloride 101 mEq/L (98-107); Globulin 2.4 g/dL (2.4-3.5); Glucose 113 mg/dL (70-105); Osmolality,Calculated 290 (280-300); Phosphorous 3.5 mg/dL (2.7-4.5); Potassium 4.2 mEq/L (3.5-5.1); Sodium 139 mEq/L (136-145); Total Protein 6.4 g/dL (6.4-8.9); eGFR For African Americans > 60 (> 60); eGFR For Non-African Americans > 60 (> 60)
[2021-04-08] MEDS: Ipratropium/Albuterol Neb 3 ML IH SCH ×3 (04:13→11:15)
[2021-04-08] MEDS: MethylPREDNISolone 40 MG/ML VIAL IVP SCH (05:06)
[2021-04-08] MEDS: Budesonide/Formoterol 160/4.5 1 PUFF INH IH SCH (08:05)
[2021-04-08] MEDS: cefTRIAXone 1,000 MG in Water for inj. (sterile) 10 ML IVP SCH (09:41)
[2021-04-08] MEDS: Losartan/HCTZ 50-12.5 TABLET PO SCH (09:42)
[2021-04-08] MEDS: Azithromycin 500 MG in 0.9 % Sodium Chloride 250 ML IVPB SCH (09:42)
[2021-04-08] MEDS: Nicotine 21 MG PATCH.TD24 TD SCH (09:42)
[2021-04-08] MEDS: hydrALAZINE 10 MG TABLET PO SCH (09:43)
[2021-04-08] MEDS: Cyanocobalamin (B-12) 1,000 MCG TABLET PO SCH (09:43)
[2021-04-08 11:54] VITALS: BP 151/89
[2021-04-08 12:30] LABS: Hematocrit 41.4 % (37.5-50.1)
[2021-04-08 12:32] LABS: Hemoglobin 13.3 g/dL (12.9-16.9)
== END 2021-04-08 15:31 | disposition home or self-care (01) | DRG 163 ==
LOC: 3ANU → SUATTDRO 21:02
PROVIDERS: ADMIT Internal Medicine; ATTEND Internal Medicine